=== PATIENT | female | born 1970 | race Caucasian/White ===

== ENCOUNTER 2024-02-20 16:39 | Outpatient (CLI) | payer BC, SELFPAY ==
[2024-02-20 17:14] LABS: Prothrombin Time 13.5 Seconds (11.1-14.7)
[2024-02-20 17:15] LABS: Partial Thromboplastin Time 28.7 Seconds (22.3-36.8)
[2024-02-20 17:17] LABS: Anion Gap 9 mmol/L (4-12); Blood Urea Nitrogen 22 mg/dL (7-17); Calcium 9.5 mg/dL (8.4-10.2); Carbon Dioxide 28 mmol/L (22-30); Chloride 97 mmol/L (98-107); Estimated Glomerular Filt Rate 47; Glucose 94 mg/dL (65-110); Potassium 4.1 mmol/L (3.4-5.0); Sodium 134 mmol/L (137-145)
== END 2024-02-20 16:40 | disposition home or self-care (01) ==
LOC: ANHLAB 16:45
PROVIDERS: Visit Provider Anesthesiology
DX: N28.9 Disorder of kidney and ureter, unspecified (principal)
CPT/HCPCS: 36415; 80048; 85610; 85730

== ENCOUNTER 2024-02-24 01:31 | Day surgery (SDC) | payer BC, SELFPAY ==
[2024-02-20 11:31] VITALS: BMI 23.6
--- NOTE | 2024-02-20 11:39 | PC.NURSE ---
Report to the Outpatient Waiting Room, entrance under the green pavilion located off [facility], at time _0700_ on date _[id number]_. Planned Procedure Time: _0900_. Time changes happen often and if your time is changed the preop area will call you the afternoon before. - You and your visitor will be asked to self-screen and do not enter if you have any COVID symptoms. - A mask is optional within the hospital at this time. Patients may have clear liquids (water, carbonated beverages, clear teas, apple juice) until 3 hours prior to surgery with a maximum of 20 ounces. - No food from midnight until time of surgery Take the following medications with a SIP of water the morning of surgery: ___Bupropion and Escitalopram DO NOT STOP ANY OF YOUR OTHER PRESCRIPTION MEDICATIONS PRIOR TO SURGERY ?EXCEPT THE FOLLOWING Medications to discontinue per physician None Date to take last dose Please no make-up, nail cameroonian, hairspray, perfume, deodorant, or body powder the day of surgery. No jewelry (including any body piercings) or valuables the day of surgery, leave them at home. Please take a shower or bath the night before, or the morning of, surgery with an antibacterial soap. Wear comfortable, loose fitting clothing. - Jewelry must be removed prior to entering the operating room. Rings and piercings that are not removed may be cut off. - The hospital will not accept responsibility for valuables. - Please leave all valuables, including medications, at home the day of surgery. If you are going home after surgery, a licensed special events driver must drive you home. - NO public transportation without another adult if you receive anesthesia. - We recommend that an adult stay with you for 24 hours following discharge. - We also recommend that you do not drive, make important decision, drink alcoholic beverages, or take any drugs that were not prescribed by your health care provider for at least 24 hours after your discharge time. Follow any additional instructions given to you from your surgeon. If you or anyone in your household have experienced Covid symptoms in the past week, please notify your surgeon or the nurse liaison at the phone number below for possible testing. Telephone instructions given to __Татьяна__and asked if any additional questions and then verbalized understanding. Patient advised to call surgeon office or pre surgery nurse liaison [phone] if any additional questions.
--- NOTE | 2024-02-24 07:23 | WPDANESEPPF ---
Anes - Initial Pre Proc Eval Procedure: Operation Date: 02/24/24 09:00 Proposed Procedures p Hysteroscopy, Dilation and Curettage - Rae Vargas MD Date/Time: 02/24/24 07:23 Surgeon: Rae Vargas MD Pre Op Diagnosis: post menopausal bleeding Patient Data Age: 53 Gender: F Height: 1.61 m Weight: 61.4 kg Allergies Allergy/AdvReac Type Severity Reaction Status Date / Time erythromycin base Allergy Mild Rash Verified 02/20/24 11:28 oxytetracycline Allergy Mild Rash Verified 02/20/24 11:28 [From Terramycin] sulfisoxazole Allergy Mild Rash Verified 02/20/24 11:28 [From Gantrisin] Home Medications Medication Instructions Recorded Confirmed Type bupropion HCl 300 mg 24 hr tablet, 300 mg PO DAILY 02/20/24 02/20/24 History extended release cetirizine 10 mg tablet (Zyrtec) 10 mg PO DAILY 02/20/24 02/20/24 History escitalopram oxalate 10 mg tablet 10 mg PO DAILY 02/20/24 02/20/24 History losartan 25 mg tablet 25 mg PO DAILY 02/20/24 02/20/24 History Patient hx anesthesia problems: none Family hx anesthesia problems: none Results Review: All pre-operative results and documents have been reviewed as part of the pre-operative evaluation. [facility] Past Medical History Medical History (Updated 02/24/24 @ 07:34 by Rae Vargas MD) Anxiety Depression (normal spontaneous vaginal delivery) Surgical History Surgical History (Updated 02/24/24 @ 07:34 by Rae Vargas MD) History of History of endometrial ablation Social History Social History Smoking status: Never smoker Alcohol intake: current Living arrangements: with family Spiritual care concerns: No Anes - Eval Final PreProcedure Day of Procedure 02/24/24 07:23 Patient weight: normal Heart: regular rate and rhythm Lungs: clear to auscultation and normal air movement Airway: Mallampati scale class II Neurological: alert and oriented Last oral intake: >/= 8 hours ASA classification: II Emergent: no Anesthetic plan: proceed Anesthesia type and monitoring: general GIVS and standard monitoring Results Review: All pre-operative results and documents have been reviewed as part of the pre-operative evaluation. Informed Consent: The patient's anesthetic plan and its attendant risks and benefits were discussed with the patient/family/POA. Questions were solicited and answers provided to the satisfaction of the patient/family/POA.
--- NOTE | 2024-02-24 07:32 | P.HP_ITS ---
History of Present Illness History of Present Illness Consent: Risks, benefits, and alternatives have been discussed and questions answered. Patient agrees to proceed with procedure. Chief complaint: post menopausal bleeding Narrative: Татьяна Candelaria is a 53 year old female with postmenopausal bleeding. Ultrasound shows a 1.5cm focus in the endometrium. They were unable to determine the this is a fibroid or a polyp. It was recommended to undergo D&C h ysteroscopy for further evaluation. Risks of infection, bleeding, perforation, and possible pathology are reviewed. Patient voices understanding and agrees to proceed. Review of Systems Review of Systems: not repeated day of surgery; patient states no changes in status [facility] Past Medical History Medical History (Updated 02/24/24 @ 07:34 by Rae Vargas MD) Anxiety Depression (normal spontaneous vaginal delivery) Surgical History Surgical History (Updated 02/24/24 @ 07:34 by Rae Vargas MD) History of History of endometrial ablation Social History Social History Smoking status: Never smoker Alcohol intake: current Living arrangements: with family Spiritual care concerns: No Meds Home Medications and Allergies Home Medications Medication Instructions Recorded Confirmed Type bupropion HCl 300 mg 24 hr tablet, 300 mg PO DAILY 02/20/24 02/20/24 History extended release cetirizine 10 mg tablet (Zyrtec) 10 mg PO DAILY 02/20/24 02/20/24 History escitalopram oxalate 10 mg tablet 10 mg PO DAILY 02/20/24 02/20/24 History losartan 25 mg tablet 25 mg PO DAILY 02/20/24 02/20/24 History Allergies Allergy/AdvReac Type Severity Reaction Status Date / Time erythromycin base Allergy Mild Rash Verified 02/20/24 11:28 oxytetracycline Allergy Mild Rash Verified 02/20/24 11:28 [From Terramycin] sulfisoxazole Allergy Mild Rash Verified 02/20/24 11:28 [From Gantrisin] Exam Const: General: healthy appearing and alert Orientation/consciousness: patient oriented x3 Resp: Effort & Inspection: normal respiratory effort : External Female Exam: normal external appearance Speculum Exam - Vagina: normal appearance of the vagina and normal vaginal discharge Speculum Exam - Cervix: normal appearance of the cervix Bimanual exam- vagina & uterus: uterine size normal and consistency normal Bimanual Exam- Adnexa, other: normal adnexae and No adnexal tenderness Neuro: General: patient oriented x3 Assessment and Plan Assessment and plan (1) Post-menopausal bleeding: Code(s): N95.0 - Postmenopausal bleeding Status: Acute Assessment and Plan: plan to proceed with D&C hysteroscopy
--- NOTE | 2024-02-24 07:32 | WPDHPUPDATE1 ---
History and Physical Update Update Date/Time: 02/24/24 07:32 History and Physical has been reviewed, including an updated exam of the patient. There are NO changes in the patient's condition. Risks, benefits, and alternatives have been discussed and questions answered. Patient agrees to proceed with procedure.
[2024-02-24 08:10] VITALS: BP 107/71; PULSE 71; RESP 14; TEMP 36.7; O2SAT 98
[2024-02-24] MEDS: ACETAMINOPHEN 500 MG TABLET 1000 MG PO (08:10)
[2024-02-24] MEDS: LACTATED RINGERS 1,000 ML 30 ML IV CONT ×2 (08:10→10:04)
[2024-02-24] MEDS: KETOROLAC 15 MG/ML VIAL (*BKC) IV PUSH (09:09)
--- NOTE | 2024-02-24 09:40 | P.OP_ITS ---
Procedure Note - Detailed Date of Procedure 02/24/24 Pre-op Diagnosis post menopausal bleeding Post-op Diagnosis Same Procedure Performed Hysteroscopic myomectomy with D and C Surgeon Rae Vargas MD Anesthesia MAC Findings the cervix is stenotic; the uterus sounds to 6cm; there is a large, vascular fibroid filling the endometrium Description of Procedure The patient is taken to the operating room and placed under anesthesia in the dorsal lithotomy position. She was prepped and draped usual sterile fashion bivalve speculum was placed in the vagina and the cervix grasped on the anterior lip with a tenaculum. The uterus is attempted to be sounded but internal stenosis is noted. The os Finders are used and the 2nd os finder is able to pass internal stenosis. The uterus is sounded to 6cm. The diagnostic hysteroscope was placed and with the above-stated findings the Flex Aveta resection device is placed. Under direct visualization the fibroid is removed in its entirety. The cavity is then able to be evaluated appears grossly sobia l. The hysteroscope was removed and a sharp OO curette used to curette the endometrium until a good uterine cry was noted in all areas. All instruments were then removed. Sponge, needle, and instrument counts are correct per the OR staff. Patient was awakened from anesthesia and taken to recovery in stable condition. Estimated Blood Loss 5 Drains No Packing No Pathology Yes ( Endometrial shavings and curettings) Complications No immediate complications Condition Stable Disposition PACU
[2024-02-24 09:41] VITALS: BP 90/55; PULSE 78; RESP 12; O2SAT 95
[2024-02-24 10:10] VITALS: BP 106/69; PULSE 67
[2024-02-24 10:40] VITALS: BP 120/75; PULSE 61
== END 2024-02-24 10:50 | disposition home or self-care (01) ==
PROVIDERS: Visit Provider Obstetrics & Gynecology Gynecology
PROC: 0U5B8ZZ Destruction of Endometrium, Via Natural or Artificial Opening Endoscopic (ICD-10-PCS; CPT 58563; principal; 2024-02-24 09:00)
DX: D25.9 Leiomyoma of uterus, unspecified (principal); F41.9 Anxiety disorder, unspecified; F32.A Depression, unspecified; Z98.890 Other specified postprocedural states
CPT/HCPCS: 58561; 88305; A9270; J1596; J1885; J2371; J2405; J2704; J3010; J7120